=== PATIENT | female | born 1950 | race Caucasian/White ===

== ENCOUNTER → 2018-10-18 | Outpatient (CLI) | payer MEDICARE ==
--- NOTE | 2018-10-18 12:00 | CONS ---
CONSULTATION DATE OF SERVICE: 10/18/2018 This 68-year-old lady has been evaluated in the sleep center for possible obstructive sleep apnea-hypopnea syndrome. HISTORY OF PRESENT ILLNESS/SLEEP-WAKE EVALUATION: Patient had sleep study about 4 years ago in another institution. According to patient during sleep study, she did not sleep. Sleep study showed that her oxygen level was low and since that time she is on treatment with oxygen supplement at night with 2 L/minute. The patient has machine of oxygen supplement which has alarm if patient does not breathe and according to her she sets this alarm off several times during the night while she is using this oxygen supplement machine which may indicate episodes of stopped breathing during the sleep. Her sleep schedule from 11:30, midnight until around 7 a.m. Usually no problems with falling asleep, although she has TV set in bedroom. She sleeps on the side position. She sleeps by herself. Before people told her that she has snoring. She also has dry mouth at night. She wakes up around 3 or 4 times at night with one episode of nocturia. No history of hypnagogic hallucinations, sleep paralysis or cataplexy. [place] Sleepiness Scale is 6. The patient usually does not take any naps. PAST MEDICAL HISTORY: Positive for COPD, hypertension, hypothyroidism. PAST SURGICAL HISTORY: Adenoidectomy and tonsillectomy. MEDICATIONS: Amlodipine, losartan, levothyroxine, Advair, albuterol, Spiriva. SOCIAL HISTORY: Positive for smoking for about 45 pack years, quit around 12 years ago. Alcohol consumption up to 2 cocktails at night. FAMILY HISTORY: Hypertension, arthritis, lung problems, emphysema, cancer. REVIEW OF SYSTEMS: Awakenings from sleep with dry mouth and nocturia. PHYSICAL EXAMINATION: During physical exam, lady without distress. VITAL SIGNS: BP 151/67, HR 78, RR 16, height 5 feet 1 inch, weight 184.6 pounds, body mass index 34.7, temperature 97.1, oxygen saturation on room air 97%. HEENT: PERRLA, EOMI. Oropharynx low position of soft palate. Mallampati 3. Restriction of nasal breathing more on the left side. NECK: Supple, no JVD. Thyroid is not palpable. LUNGS: Clear to percussion and to auscultation. Good air exchange. No wheezing or rhonchi. HEART: S1, S2 regular. No murmurs, gallops, or rubs. ABDOMEN: Slightly obese. EXTREMITIES: No clubbing or cyanosis. FALAFEL CART COOK: Awake, alert, and oriented X3. Cranial nerves 2 to 7 intact. There is no fasciculation or atrophy. noted. No focal deficits observed. IMPRESSION: 1. Awakenings from sleep with dry mouth and nocturia, signal of alarm from oxygen supplement, which may indicate episodes of stopped breathing during the sleep, low position of soft palate, obesity, obstructive sleep apnea-hypopnea syndrome. 2. Chronic obstructive pulmonary disease. Patient is on oxygen supplement 2 L/minute at night. 3. Obesity, body mass index 34.7. 4. Hypertension. 5. Hypothyroidism. 6. Status post tonsillectomy and adenoidectomy. PLAN: 1. Polysomnography for evaluation of patient's breathing during sleep. 2. CPAP/BiPAP titration if sleep study confirms obstructive sleep apnea-hypopnea syndrome. 3. Preferable position during sleep on the side. 4. No driving if patient feels any sleepiness. 5. I will see patient for follow up visit to explain results of testing and following plan. Thank you very much for referring this patient for consultation. Sincerely, Issa Hanson MD, PhD, FAASM Diplomat of [employer] Supervisor [place] [facility] [place] MMODL / ABBY: [id number] /
== END ==
LOC: SLEEP 10:26
PROVIDERS: ATTEND Internal Medicine
DX: G47.33 Obstructive sleep apnea (adult) (pediatric) (principal); J44.9 Chronic obstructive pulmonary disease, unspecified; E66.9 Obesity, unspecified; I10 Essential (primary) hypertension; E03.9 Hypothyroidism, unspecified; Z68.34 Body mass index [BMI] 34.0-34.9, adult; Z90.89 Acquired absence of other organs; Z99.89 Dependence on other enabling machines and devices; Z79.899 Other long term (current) drug therapy; Z87.891 Personal history of nicotine dependence
CPT/HCPCS: 99211

== ENCOUNTER → 2019-02-21 | Outpatient (CLI) | payer MEDICARE ==
--- NOTE | 2019-02-21 15:14 | SFUN ---
SLEEP CENTER FOLLOW UP NOTE DATE OF SERVICE: 02/21/2019 A 68-year-old lady who has been followed in the Sleep Center for treatment of obstructive sleep apnea-hypopnea syndrome. Recently, patient had a diagnostic sleep study and CPAP titration and I discussed results of sleep study as inpatient with the details because she was diagnosed with obstructive sleep apnea and subsequently was started on treatment with CPAP. She is able to use CPAP practically every night, sometimes feel discomfort in her sinuses in the morning after stop using CPAP. I checked her CPAP unit, patient using a 28/30 nights for more than 4 hours which is good compliance. Range of the pressure 5-8, usage per night 6.6 hours average. Apnea- hypopnea index reading 2.5, which is normal, mask fitting 91% which is normal. Humidifier at the level of 3. MEDICATIONS: Amlodipine, losartan, levothyroxine, albuterol, Spiriva, Advair. PHYSICAL EXAM: Patient in no distress. BP 131/68, HR 93, RR 14, weight 186.6, temperature 98.8, body mass index 34.0. OROPHARYNX: Low position of soft palate. Mallampati 4. Neck Supple, no JVD. Thyroid is not palpable. LUNGS Clear to percussion and to auscultation. Good air exchange. No wheezing or rhonchi. HEART S1, S2 regular. No murmurs, gallops, or rubs. ABDOMEN Soft and nontender. Bowel sounds are present. No organomegaly appreciated. EXTREMITIES No clubbing or cyanosis. MED PEDS Awake, alert, and oriented X3. Cranial nerves 2 to 7 intact. There is no fasciculation or atrophy. noted. No focal deficits observed. IMPRESSION: 1. Obstructive sleep apnea-hypopnea syndrome; apnea-hypopnea index 12.1, and REM sleep 30 on control with CPAP. Patient demonstrated great compliance with treatment, benefitting from treatment. 2. Hypertension. 3. Chronic obstructive pulmonary disease. 4. Obesity. 5. Hypothyroidism. 6. Status post tonsillectomy and adenoidectomy. PLAN: 1. I explained patient how to adjust humidity in a humidifier. She will adjust during the night with a goal to avoid problems related to sinuses. 2. Patient will continue to use CPAP equipment every night for the whole night. 3. Losing weight. 4. Sleep hygiene with regular time bed for at least 8 hours. 5. No driving if feeling sleepiness. 6. Will maintain all necessary CPAP prescription including mask, presently patient is using full-face Dream Wear mask, tube, filters. 7. Followup visit in 10 months or earlier if patient has any problems. Thank you very much for allowing me to participate in the management of your patient. Sincerely, Issa Hanson MD, PhD, FAASM Diplomat of [employer] Social Services Director of [facility] [place] MMODL / IJN: [id number] /
== END ==
LOC: SLEEP 14:17
PROVIDERS: ATTEND Internal Medicine
DX: G47.33 Obstructive sleep apnea (adult) (pediatric) (principal); I10 Essential (primary) hypertension; E66.9 Obesity, unspecified; E03.9 Hypothyroidism, unspecified; J44.9 Chronic obstructive pulmonary disease, unspecified; Z90.89 Acquired absence of other organs; Z99.89 Dependence on other enabling machines and devices; Z79.899 Other long term (current) drug therapy

== ENCOUNTER → 2020-07-09 | Outpatient (CLI) | payer MEDICARE ==
[~2020-07-09] MED LIST: AMINOPHYLLINE 500 MG/20 ML VIAL IV ONE; REGADENOSON 0.4 MG/5 ML SYRINGE IV ONE
--- NOTE | 2020-07-09 12:20 | NM ---
"EXAMINATION TYPE: NM stress lexiscan cardiolite DATE OF EXAM: 07/09/2020 COMPARISON: NONE HISTORY: Z01.818 with difficulty breathing and hypertension TECHNIQUE: After the intravenous administration of 10.2 mCi Tc 99m Sestamibi - Cardiolite resting SP ECT images acquired 45 minutes post injection. The patient received 0.4mg Lexiscan, 24.6 mCi Tc 99m Sestamibi - Stress images obtained [address] injection FINDINGS: Review of stress and rest SPECT images demonstrates somewhat equivocal findings. I stress images the re is increased uptake at the cardiac apex as compared to rest images, however, there is decreased up take at the apex on rest images more so than on stress images seen in the horizontal long axis and ve rtical long axis. Gated analysis shows normal wall motion with an estimated left ventricular ejection fraction of 55 %. IMPRESSION: Difficult to exclude pharmacologically induced apical left ventricular myocardial ischemia with addit ional findings as described A Yellow level critical message alert has been initiated for Zeus Keenan DO via the Currently | Critical Results System on 07/09/2020 12:17 PM. This message alert has been sent to Zeus olivares DO via the preferences provided by the clinician for the receipt of Radiology Critical Findings . Message ID [id number]."
--- NOTE | 2020-07-09 13:50 | EST ---
EXERCISE STRESS AGE: 70 SEX: F HT: 5'2" WT: 429 lbs. PROTOCOL: Lexiscan STAGE: N/A DURATION OF EXERCISE: N/A HEART RATE REST: 93 BLOOD PRESSURE REST: 118/78 MAXIMUM HEART RATE ACHIEVED: 105 MAXIMUM BLOOD PRESSURE: 196/79 85% MPHR: N/A 100% MPHR: N/A METS: N/A INDICATIONS: Pre-op. CLINICAL INFORMATION: Baseline rhythm is a sinus mechanism, rate of 93, RSR prime, nonspecific ST-T wave changes. Baseline blood pressure 118/78 mmHg. Patient received an injection of Lexiscan. Electrocardiograph monitoring revealed occasional PVCs. There was no evidence of diagnostic ischemic ST deviation. Cardiolite was injected per protocol. CONCLUSION: 1. Nondiagnostic electrocardiograph stress testing with occasional PVCs. 2. Nuclear images will be reported separately. MMODL / IJN: [id number] /
== END | disposition home or self-care (01) ==
LOC: RADNMMAIN 07:46
PROVIDERS: ATTEND Family Medicine
DX: Z01.818 Encounter for other preprocedural examination (principal); I25.9 Chronic ischemic heart disease, unspecified; I49.3 Ventricular premature depolarization; I45.81 Long QT syndrome
CPT/HCPCS: 93017; 78452; A9500; J2785

== ENCOUNTER → 2020-08-10 | Outpatient (CLI) | payer MEDICARE ==
[2020-08-10 14:14] LABS: Basophils # (A) 0.1 k/uL (0-0.2); Basophils % (A) 1 %; Eosinophils # (A) 0.2 k/uL (0-0.7); Eosinophils % (A) 3 %; HGB 13.7 gm/dL (11.4-16.0); Lymphocytes # (A) 1.9 k/uL (1.0-4.8); Lymphocytes % (A) 29 %; MCHC 33.4 g/dL (31.0-37.0); Mean Platelet Volume 7.2; Monocytes # (A) 0.4 k/uL (0-1.0); Monocytes % (A) 6 %; Neutrophils % (A) 60 %; Platelet Count 215 k/uL (150-450); RDW 12.6 % (11.5-15.5); WBC 6.7 k/uL (3.8-10.6)
[2020-08-10 14:24] LABS: Potassium 4.3 mmol/L (3.5-5.1)
== END | disposition home or self-care (01) ==
LOC: LABPAT 12:57
PROVIDERS: ATTEND Orthopaedic Surgery
DX: Z01.818 Encounter for other preprocedural examination (principal); M75.42 Impingement syndrome of left shoulder
CPT/HCPCS: 36415; 80051; 85025

== ENCOUNTER 2020-08-20 09:33 | Day surgery (SDC) | payer MEDICARE ==
[2020-08-14 10:31] VITALS: BMI 35.6
--- NOTE | 2020-08-19 20:19 | HP ---
HISTORY AND PHYSICAL DATE OF SURGERY: 08/20/2020 Nirali Hill is a 70-year-old patient seen with progressive left shoulder pain. Options for treatment were discussed with her. She elected to proceed with arthroscopy. Consent was obtained. Medical and cardiac clearances were obtained. PAST MEDICAL HISTORY: Hypertension, hypothyroidism. PAST SURGICAL HISTORY: D and C, tonsillectomy. DAILY MEDICATIONS: Advair, levothyroxine, losartan, Spiriva. ALLERGIES: CIPRO, NEOSPORIN. SOCIAL HISTORY: She denies current tobacco use. PHYSICAL EVALUATION OF THE LEFT SHOULDER: Flexion is 90 degrees. Abduction is 40 degrees. External rotation is 50 degrees with pain and weakness. There is tenderness along the anterolateral acromion and rotator cuff insertion site. Impingement is positive at 50. Distal neurovascular exam is intact. RADIOGRAPHS: Left shoulder radiographs reveal a stable and healing tuberosity fracture. An MRI of the left shoulder revealed a rotator cuff tendon tear as well as the tuberosity fracture. IMPRESSION: 1. Left shoulder impingement with rotator cuff tear. 2. History of left shoulder tuberosity fracture. 3. Hypertension. 4. Hypothyroidism. 5. Chronic obstructive pulmonary disease. PLAN: Left shoulder arthroscopy with subacromial decompression, arthroscopic rotator cuff repair, Dario procedure and debridement. MMODL / IJN: [id number] /
[~2020-08-20 09:33] MED LIST changes: -AMINOPHYLLINE 500 MG/20 ML VIAL IV ONE; +DEXAMETHASONE SOD PHOSPHATE 4 MG/ML 1 ML VIAL IV ONE; +HYDROmorphone 0.5 MG/0.5 ML SYRINGE IVP PRN; +LACTATED RINGERS 1,000 ML IV SCH; +LIDOCAINE 1% (10MG/ML) FOR IV START INTRADERMA PRN; +MIDAZOLAM 2 MG/2 ML VIAL IV PRN; +ONDANSETRON 4 MG/2 ML VIAL IVP ONE; -REGADENOSON 0.4 MG/5 ML SYRINGE IV ONE
[2020-08-20 09:49] VITALS: TEMP 97.3
[2020-08-20] MEDS ORDERED: IPRATROPIUM-ALBUTEROL 3 ML NEB INHALATION STA (10:01)
[2020-08-20] MEDS ORDERED: fentaNYL (PF) 50 MCG/ML 2 ML AMP ONE (11:19)
[2020-08-20] MEDS ORDERED: ROCURONIUM 10 MG/ML (10 ML VIAL) IV ONE (11:19)
[2020-08-20] MEDS ORDERED: MIDAZOLAM 2 MG/2 ML VIAL ONE (11:19)
[2020-08-20] MEDS ORDERED: HYDROmorphone (PF) 1 MG/ML ONE (11:19)
[2020-08-20] MEDS ORDERED: PROPOFOL 10 MG/ML 20 ML VIAL IV ONE (11:19)
[2020-08-20] MEDS ORDERED: SUCCINYLCHOLINE CHLORIDE 100 MG/5 ML SYR IV ONE (11:19)
[2020-08-20] MEDS ORDERED: GLYCOPYRROLATE 0.2 MG/ML 2 ML VIAL ONE (11:19)
[2020-08-20] MEDS ORDERED: NEOSTIGMINE 1 MG/ML 10 ML VIAL ONE (11:19)
[2020-08-20] MEDS ORDERED: LIDOCAINE 1% INJ 10MG/ML (20 ML MDV) ONE (11:19)
--- NOTE | 2020-08-20 12:57 | P.OP ---
Date of Procedure: 08/20/20 Preoperative Diagnosis: Left shoulder impingement Postoperative Diagnosis: 1. Left shoulder rotator cuff tear 2. Left shoulder impingement 3. Left shoulder partial long head biceps tendon tear 4. Left shoulder superficial labral tear Procedure(s) Performed: 1. Left shoulder arthroscopic rotator cuff repair 2. Left shoulder arthroscopic subacromial decompression 3. Left shoulder arthroscopic biceps tenotomy 4. Left shoulder arthroscopic debridement labral tear Implants: 15.5 Arthrex swivel lock anchor Anesthesia: JAYANT Surgeon: Cheko [employer] Supervisor #1: Arron Ding Estimated Blood Loss (ml): 6 Pathology: none sent Condition: stable Disposition: PACU Indications for Procedure: 70-year-old patient seen with progressive left shoulder pain. After treatment options were discussed, she elected to proceed with arthroscopy. Operative Findings: See description of procedure Description of Procedure: Patient underwent an interscalene block by department of anesthesia. The patient was then taken to the operative suite. The patient underwent a general anesthetic by the department of anesthesia. The patient was placed into a lateral position and secured. There was appropriate padding of the bony prominence. Left shoulder was then prepped and draped in normal sterile orthopedic fashion. We placed the extremity in 10 pounds of longitudinal tr action. A posterior incision was now made for a posterior working portal site. The trocar and cannula were inserted into the glenohumeral joint. Arthroscopy was initiated. Spinal needle was now inserted anteriorly, to ascertain the anterior working portal site. An incision was now made in that area, a trocar was inserted followed by a probe. There was some superficial tearing of the anterior labrum. There were grade 1 chondral changes of the glenohumeral joint. There was some partial tearing and hyperemia along head biceps tendon. I performed an arthroscopic biceps tenotomy. I debrided that superficial labral tear getting down to stable labral tissue. I probed the residual labrum and it was stable. Instruments were now removed from glenohumeral joint. Utilizing the posterior working portal site, the trocar and cannula were inserted into the subacromial space. Arthroscopy initiated. I made an incision 2 fingerbreadths lateral to the acromion. I introduced my trocar followed by my ArthroCare ablator. I now began ablating thick subacromial bursal tissue, which exposed the undersurface of the anterior acromion. There was diminished subacromial space. There was a very prominent anterior acromion. A motorized bur was introduced and a subacromial decompression was performed. I also excised some osteophytes off the inferior aspect of the distal clavicle. The AC joint was visualized and noted to be moderately arthritic, I did not think enough to warrant Dario procedure. I turned my attention to the rotator cuff. There was a 11.5 cm rotator cuff tear along the distal supraspinatus. I debrided the margins getting down to stable tendon tissue. I abraded the footprint with a motorized bur. With the assistance of Jay Jay GUEVARA I passed 2 everted mattress sutures through good bites of rotator cuff tendon. I punched the hole the footprint for insertion of an anchor. I passed all 4 limbs of suture through the eyelet of a 5.5 Arthrex swivel lock anchor. I placed the eyelet in the pre-punch hole. Jay Jay Ding tensioned all 4 suture limbs and deployed the anchor. There was good fixation of the anchor. All residual suture limbs were now clipped. We had good compression of the tendon along the entire footprint. I injected 1 mL Renyte intra-articular. Instruments now removed from the portal sites. All portal sites were approximated with nylon suture. Sterile dressings were applied followed by a shoulder sling. Arron GUEVARA assisted in this case. The patient was awakened, transferred to a bed, and taken to recovery in stable condition.
[2020-08-20 13:17] VITALS: RESP 16
[2020-08-20] MEDS ORDERED: LABETALOL 5 MG/ML VIAL MDV IVP ONE (13:21)
[2020-08-20] MEDS ORDERED: traMADol 50 MG TAB ONE (14:22)
[2020-08-20] MEDS ORDERED: traMADol 50 MG TAB PO ONE (14:25)
[2020-08-20 15:06] VITALS: BP 140/84; PULSE 86
== END 2020-08-20 15:33 | disposition home or self-care (01) ==
LOC: OR 09:33
PROVIDERS: ATTEND Orthopaedic Surgery
DX: M75.102 Unspecified rotator cuff tear or rupture of left shoulder, not specified as traumatic (principal); M75.42 Impingement syndrome of left shoulder; S46.112A Strain of muscle, fascia and tendon of long head of biceps, left arm, initial encounter; S43.432A Superior glenoid labrum lesion of left shoulder, initial encounter; M25.712 Osteophyte, left shoulder; M19.012 Primary osteoarthritis, left shoulder; I10 Essential (primary) hypertension; J44.9 Chronic obstructive pulmonary disease, unspecified; G47.33 Obstructive sleep apnea (adult) (pediatric); E03.9 Hypothyroidism, unspecified; M19.90 Unspecified osteoarthritis, unspecified site; Z88.1 Allergy status to other antibiotic agents; Z88.5 Allergy status to narcotic agent; Z79.82 Long term (current) use of aspirin; Z79.890 Hormone replacement therapy; Z99.89 Dependence on other enabling machines and devices; Z79.51 Long term (current) use of inhaled steroids; Z79.899 Other long term (current) drug therapy; Z98.890 Other specified postprocedural states
CPT/HCPCS: 29826; 29827; C1713; Q4212; J2250; J1100; J2710; J0690; J2405; J2001; J3010; J1170 ×2; J0330; J2704

== ENCOUNTER → 2021-03-31 | Outpatient (CLI) | payer MEDICARE ==
[2021-03-31 15:24] LABS: African American GFR (CKD) >90 (>60 ml/min/1.73 sqM); Blood Urea Nitrogen 21 mg/dL (7-17); Non-African American GFR(CKD) 88 (>60 ml/min/1.73 sqM)
--- NOTE | 2021-03-31 22:17 | CT ---
EXAMINATION TYPE: CT chest w con DATE OF EXAM: 03/31/2021 COMPARISON: Radiograph 05/28/2020 HISTORY: 71-year-old female R91.1, lung nodules TECHNIQUE: Contiguous axial scanning of the chest after the administration of 100 mL of Isovue 300. Coronal/sagittal reconstructions performed. CT DLP: 428.5mGycm. Automatic exposure control utilized for a dose reduction. FINDINGS: Heart upper limits of normal in size without pericardial effusion. Mild proximal LAD coronary artery calcifications are present. Borderline ectatic ascending aorta 3.5 cm. Mild atherosclerotic arch calcifications. Possible moderat e atherosclerotic narrowing at the origin of both brachiocephalic and left subclavian arteries. Enlarged caliber to the main right and left pulmonary arteries measuring up to 2.8 cm each suggesting underlying pulmonary artery hypertension. Prominent but nonenlarged 8mm lower right paratracheal lymph node. No thoracic lymphadenopathy by CT size criteria. Mild biapical pleural-parenchymal scarring. Mild centrilobular emphysema. Volume loss and consolidati on medial right middle lobe and additional prominent streaky bands of bibasilar atelectasis. No pleural effusion. No suspicious pulmonary nodules are seen. Low attenuation hepatic parenchyma suggesting fatty infiltration. Tiny hilar splenule. Mild to modera te arthroscopic calcifications infrarenal abdominal aorta. Bones: Accentuated mid thoracic kyphosis with moderate to advanced degenerative disc disease here. IMPRESSION: 1. COPD with mild emphysema. Pulmonary arterial hypertension. 2. Focal opacity likely volume loss/atelectasis along the medial right middle lobe. Correlate for any infectious/symptoms to exclude the possibility of pneumonia. Follow-up in 3-6 months to ensure stabi lity or resolution. 3. Prominent streaky bands of bibasilar atelectasis.
== END | disposition home or self-care (01) ==
LOC: RADCTMAIN 14:42
PROVIDERS: ATTEND Internal Medicine Critical Care Medicine
DX: J44.9 Chronic obstructive pulmonary disease, unspecified (principal); I27.21 Secondary pulmonary arterial hypertension
CPT/HCPCS: 82565; 84520; 71260; 36415; Q9967

== ENCOUNTER → 2021-06-03 | Outpatient (CLI) | payer MEDICARE | END | disposition home or self-care (01) | LOC: LABWHC1 12:12 | PROVIDERS: ATTEND Family Medicine | DX: Z20.822 Contact with and (suspected) exposure to COVID-19 (principal) | CPT/HCPCS: U0003; C9803 ==

== ENCOUNTER → 2023-12-19 | Outpatient (CLI) | payer MEDICARE ==
[2023-12-19 13:27] LABS: African American GFR (CKD) >90 (>60 ml/min/1.73 sqM); Blood Urea Nitrogen 16 mg/dL (7-17); Non-African American GFR(CKD) >90 (>60 ml/min/1.73 sqM)
--- NOTE | 2023-12-19 14:10 | CT ---
EXAMINATION TYPE: CT angio chest DATE OF EXAM: 12/19/2023 COMPARISON: 03/31/2021 HISTORY: pe CT DLP: 334.9 mGycm CONTRAST: CT chest with contrast and 3D reconstruction with MIP imaging is performed with IV Contrast, patient injected with 80 mL of Isovue 370. Contrast-enhanced CT of the chest was performed through the course of the pulmonary arteries with dominick g and mediastinal window settings submitted. 3D reconstruction with MIP imaging was also performed. PULMONARY ARTERIES: The pulmonary arteries and their major tributaries are patent. I do not see nery dence for sizable filling defect to suggest pulmonary embolic process. LUNGS: Focal nodular infiltrate right middle lobe could reflect underlying developing pneumonia. Area measures 2.7 x 1.9 cm. Underlying mass is not excluded and clinical correlation as well as short-ter m follow-up is advised. There are also scattered areas of linear parenchymal atelectasis and/or scarr ing. Mild emphysematous change redemonstrated. No pulmonary nodule or mass is detected. No pleural e ffusion. MEDIASTINUM: Thoracic aorta is of normal caliber.The heart is not enlarged. No evidence for mediast inal mass. No mediastinal lymph nodes greater than 1cm. HILAR STRUCTURES: No evidence for mass. No hilar lymph nodes greater than 1 cm. UPPER ABDOMEN: No significant abnormality is seen. IMPRESSION: 1. No evidence for Pulmonary embolism at this time. 2.Focal nodular infiltrate right middle lobe could reflect underlying developing pneumonia. Area mookie ures 2.7 x 1.9 cm. Underlying mass is not excluded and clinical correlation as well as short-term fol low-up is advised.
== END | disposition home or self-care (01) ==
LOC: RADCTMAIN 12:05
PROVIDERS: ATTEND Internal Medicine
DX: R91.8 Other nonspecific abnormal finding of lung field (principal)
CPT/HCPCS: 82565; 84520; 71275; 36415; Q9967

== ENCOUNTER → 2024-01-19 | Outpatient (CLI) | payer MEDICARE ==
--- NOTE | 2024-01-28 13:36 | PE ---
EXAMINATION TYPE: PET CT fusion skull to thigh DATE OF EXAM: 01/19/2024 COMPARISON: CTA chest 12/19/2023 Prior PET/CT: No prior at this location HISTORY: Lung mass TECHNIQUE: Following the intravenous administration of 11.79 mCi of F-18 FDG, whole body images are performed from the skull base to the midthigh. Images are reviewed on the computer in the coronal, a xial, and sagittal planes. Reconstructed rotating images are created on independent workstation and reviewed on the computer. A localization and attenuation correction CT is performed in conjunction with the PET scan. DLP: 687.3 mGycm SCAN: Initial Blood glucose: 84 mg/dL Average Mediastinum SUV: 2.29 Average Liver SUV: 2.79 FINDINGS: NECK: There is subtle asymmetry of uptake within the right vocal cord compared to the left. Minimal fullness is not excluded. Additional evaluation with direct visualization is recommended. This has an SUV of 6.13, image 52. THORAX: Some subtle uptake is within the anterior right upper lung field, image 79, SUV 1.86. This co uld be related to inflammatory change or early metastasis. This does correlate with a tiny nodule on CT. There is a focal area of increased radiotracer along the external thoracic cavity. This is just below the tip of the right scapula. Image 93, estimated 5.66. Within the right medial anterior lung, example image 98, the SUV is in the intermediate range of 1.62 . Consider inflammatory change such as atelectasis or pneumonia. ABDOMEN: No abnormal uptake PELVIS: No abnormal uptake OSSEOUS STRUCTURES: No abnormal uptake LOCALIZATION CT: PET Findings correlate with the localization CT. COMPARISON: Findings on prior CT are present on the current exam. IMPRESSION: 1. 1. Larger density within the medial lower right lung has intermediate signal suggesting inflammato ry change. 2. There is focal uptake within the anterior right mid lung. This may be too small for accurate measu rement. Inflammatory change or early metastasis and a small lesion should be considered. Follow-up is recommended. 3. There is asymmetric abnormal uptake within the vocal cord level with greater uptake on the right w hich may have some subtle underlying fullness. Direct visualization is recommended. Neoplasm is not e xcluded.
== END | disposition home or self-care (01) ==
LOC: RADPETMAIN 07:10
PROVIDERS: ATTEND Internal Medicine
DX: R91.8 Other nonspecific abnormal finding of lung field (principal); J98.4 Other disorders of lung
CPT/HCPCS: 78815; A9552

== ENCOUNTER 2024-02-15 09:50 | Day surgery (SDC) | payer MEDICARE ==
[2024-02-13 15:36] VITALS: BMI 32.0
[~2024-02-15 09:50] MED LIST changes: -DEXAMETHASONE SOD PHOSPHATE 4 MG/ML 1 ML VIAL IV ONE; -HYDROmorphone 0.5 MG/0.5 ML SYRINGE IVP PRN; -MIDAZOLAM 2 MG/2 ML VIAL IV PRN; -ONDANSETRON 4 MG/2 ML VIAL IVP ONE
[2024-02-15] MEDS: IV FLUID CONTINUATION 1,000 ML IV ONE (10:05)
[2024-02-15 10:33] VITALS: TEMP 97.5
[2024-02-15] MEDS ORDERED: GLYCOPYRROLATE 0.2 MG/ML 2 ML VIAL ONE (10:37)
[2024-02-15] MEDS ORDERED: fentaNYL (PF) 50 MCG/ML 2 ML AMP ONE (10:37)
[2024-02-15] MEDS ORDERED: KETAMINE HCL IN 0.9 % NACL 50 MG/5 ML SYRINGE ONE (10:37)
[2024-02-15] MEDS ORDERED: MIDAZOLAM 2 MG/2 ML VIAL ONE (10:37)
[2024-02-15] MEDS ORDERED: PROPOFOL 10 MG/ML 20 ML VIAL IV ONE (10:37)
[2024-02-15] MEDS ORDERED: LIDOCAINE 2% (PF) 20 MG/ML 5 ML VIAL ONE (10:37)
[2024-02-15] MEDS ORDERED: ESMOLOL 100 MG/10 ML VIAL ONE (10:37)
[2024-02-15] MEDS: LIDOCAINE 2% INJ 20 MG/ML INTRATRACH ONE (10:59)
[2024-02-15 11:26] VITALS: BP 129/78; PULSE 93; RESP 17
--- NOTE | 2024-02-15 12:06 | FL ---
EXAMINATION TYPE: FL bronchoscopy Intraoperative/procedural fluoroscopic services were provided. Tota l fluoroscopy time is 1.6 seconds with a total of 1 submitted images to PACS. Please see the operativ e/procedural note for further details. DAP: 0.1051 Gycm2
--- NOTE | 2024-02-15 12:36 | OP ---
OPERATIVE REPORT DATE OF SERVICE : PROCEDURES PERFORMED: Bronchoscopy, bronchoalveolar lavage of right middle lobe and right lower lobe. PREOPERATIVE DIAGNOSIS: Chronic right middle lobe and right lower lobe atelectasis, and abnormal, nonspecific PET scan findings. POSTOPERATIVE DIAGNOSIS: Right middle lobe atelectasis and right medial segment of the right lower lobe atelectasis, possibly congenital in nature. ANESTHESIA USED: IV conscious sedation. DESCRIPTION OF PROCEDURE: The patient was brought in to the bronchoscopy suite, she was placed in supine position, she was prepared previously as per bronchoscopy protocol. O2 was applied via Ventimask, a bite block was placed. The patient was monitored with continuous monitoring of the O2 saturation, blood pressure was intermittently monitored, and cardiac rhythm was continuously monitored. After adequate IV conscious sedation, the bronchoscope was inserted through the bite block down to the area of the vocal cords. As thorough examination was done on the vocal cords, there was no evidence of any pathology on the vocal cords, although the PET scan showed some uptake on the vocal cords, but not seen visually on examination to show any abnormalities. Then the lidocaine was applied over the vocal cords, the bronchoscope was advanced further down. Thorough examination was done of the trachea, rickie, right upper lobe, right middle lobe, right lower lobe, left upper lobe, lingula, and left lower lobe. There was no evidence of any significant abnormalities in the airways except the right middle lobe was noted to be narrowed, but I was able to get into the right middle lobe and I was able to visualize the medial segment and the lateral segment, there was no evidence of any endobronchial pathology. The bronchus was a bit narrowed. Then as we went down to the right lower lobe, there was a definite complete collapse of the medial segment of the right lower lobe, and this was felt to be most likely congenital, again I was able to get into the segment, able to get some bronchoalveolar lavage from the segment, but no clear-cut evidence of any endobronchial pathology. The procedure was well tolerated, no complications, and no blood loss. Findings were discussed with the patient and her daughter, and the plan is to have repeat CT of the chest in 6 months. MMODL / IJN: [id number] /
[2024-02-16 06:10] LABS: Appearance,BF Blood Tinged (Clear); RBC, Body Fluid 17000 /UL (0-2000)
[2024-02-16 10:02] LABS: Nucleated Cells, Body Fluid 875 /UL
== END 2024-02-15 11:51 | disposition home or self-care (01) ==
LOC: ORWHC2ENDO 09:50
PROVIDERS: ATTEND Internal Medicine
DX: J98.11 Atelectasis (principal); J44.9 Chronic obstructive pulmonary disease, unspecified; I10 Essential (primary) hypertension; E03.9 Hypothyroidism, unspecified; E78.5 Hyperlipidemia, unspecified; E66.9 Obesity, unspecified; G47.33 Obstructive sleep apnea (adult) (pediatric); Z88.1 Allergy status to other antibiotic agents; Z79.51 Long term (current) use of inhaled steroids; Z79.890 Hormone replacement therapy; Z79.899 Other long term (current) drug therapy
CPT/HCPCS: 88108; 88305; 89050; 87070; 87205; 87116; 87102; 87206; 31624; J2001 ×2; J2250; J3010; J2704; J1805; J1596

== ENCOUNTER → 2024-12-26 | Outpatient (CLI) | payer MEDICARE ==
[2024-12-26 14:15] LABS: African American GFR (CKD) >90 (>60 ml/min/1.73 sqM); Blood Urea Nitrogen 21 mg/dL (7-17); Non-African American GFR(CKD) 89 (>60 ml/min/1.73 sqM)
--- NOTE | 2024-12-26 14:54 | CT ---
CT thorax with contrast HISTORY: Abnormal findings lung cha. COMPARISON: CTA thorax dated 12/19/2023. CT chest 03/31/2021 TECHNIQUE: Multiple axial images are obtained through the thorax following IV contrast material FINDINGS: There are mild emphysematous changes with an upper lobe predominance. There is stable chronic round atelectasis in the right middle lobe. There is mild scattered subpleura l parenchymal scarring in the lung bases. There is a 3.5 mm nodule in the right lower lobe posteriorl y. There is mild bronchiectasis in the right lower lobe. There is no airspace consolidation There is no pleural effusion or pneumothorax. The vessels of the chest are normal. There is no mediastinal, hilar or axillary adenopathy. There is mild cardiomegaly. Limited scanning through the upper abdomen reveals no gross abnormality. There are no focal osseous lesions IMPRESSION: 1. 3.4 mm nodule right lower lobe. 2. Mild emphysematous changes. Stable mild chronic changes in the lung bases. 3. Stable round atelectasis in the right middle lobe. 4. No acute cardiopulmonary disease. [facility], , 12/26/2024 2:51 PM
== END | disposition home or self-care (01) ==
LOC: RADCTMAIN 13:29
PROVIDERS: ATTEND Internal Medicine
DX: R91.8 Other nonspecific abnormal finding of lung field (principal); R91.1 Solitary pulmonary nodule; J43.9 Emphysema, unspecified; J98.11 Atelectasis
CPT/HCPCS: 82565; 84520; 71260; 36415; Q9967